=== PATIENT | male | born 1950 | race Caucasian/White ===

== ENCOUNTER 2020-03-13 17:16 | Emergency (ER) | payer MEDICARE ==
--- NOTE | 2020-03-13 19:19 | RAD REPORT ---
EXAM DESCRIPTION: US - Extremity Venous Uni Ltd - 03/13/2020 6:47 pm CLINICAL HISTORY: Pain;Swelling COMPARISON: None. TECHNIQUE: Real-time sonographic evaluation of the left lower extremity deep venous system was perfo rmed. FINDINGS: Normal compressibility, flow augmentation, phasic flow and spontaneous flow are identified in the left lower extremity common femoral, superficial femoral, popliteal and posterior tibial vein s. No intraluminal filling defects seen. IMPRESSION: No DVT in the left lower extremity.
--- NOTE | 2020-03-13 19:39 | ER ---
Nurse's Notes [facility] Name: Josiah Falk Age: 69 yrs Sex: Male : 1950 Arrival Date: 03/13/2020 Time: 17:17 Bed 4 Private MD: Dung Solomon E Diagnosis: Left Lower Extremity Pain Presentation: 03/13 17:21 Chief complaint: Patient states: I may have a blood clot in my L leg. Started having ca1 cramps an hour ago, my L calf is swelling and am sweaty. Cramps goes up to the upper L leg now. Denies chest pain. Denies Hx of blood cots. Coronavirus screen: Client denies travel out of the [place] in the last 14 days. At this time, the client does not indicate any symptoms associated with coronavirus-19. Ebola Screen: Patient negative for fever greater than or equal to 101.5 degrees Fahrenheit, and additional compatible Ebola Virus Disease symptoms Patient denies exposure to infectious person. Patient denies travel to an Ebola-affected area in the 21 days before illness onset. No symptoms or risks identified at this time. Initial Sepsis Screen: Does the patient meet any 2 criteria? No. Patient's initial sepsis screen is negative. Does the patient have a suspected source of infection? No. Patient's initial sepsis screen is negative. Risk Assessment: Do you want to hurt yourself or someone else? Patient reports no desire to harm self or others. Onset of symptoms was March 13, 2020. 17:21 Method Of Arrival: Ambulatory ca1 17:21 Acuity: FELIZ 3 ca1 Historical: - Allergies: 17:25 Tetracycline; ca1 - Home Meds: 17:25 Lisinopril Oral [Active]; ca1 - PMHx: 17:25 Hypertension; ca1 - PSHx: 17:25 None; ca1 - Immunization history:: Adult Immunizations up to date, Flu vaccine is not up to date. - Social history:: Smoking status: Patient denies any tobacco usage or history of. Screenin:30 Abuse screen: Denies threats or abuse. Nutritional screening: No deficits noted. ea Tuberculosis screening: No symptoms or risk factors identified. Fall Risk None identified. Assessment: 19:30 General: Appears in no apparent distress. Behavior is appropriate for age, Pt denies ea pain at this time. Pain: Denies pain. Complains of pain in left hamstring. Neuro: Level of Consciousness is awake, alert, obeys commands. Respiratory: Airway is patent Respiratory effort is even, unlabored, Respiratory pattern is regular, symmetrical. Derm: Skin is pink, warm \T\ dry. 19:46 Reassessment: Patient and/or family updated on plan of care and expected duration. Pain ea level reassessed. Patient is alert, oriented x 3, equal unlabored respirations, skin warm/dry/pink. Discharge instruction given to patient,v verbalized the understanding of instruction. Pt left ED ambulatory tolerating well. Vital Signs: 17:21 BP 169 / 98; Pulse 71; Resp 16 S; Temp 98.8(TE); Pulse Ox 97% on R/A; Weight 79.38 kg ca1 (R); Height 6 ft. 0 in. (182.88 cm) (R); Pain 9/10; 17:21 Body Mass Index 23.73 (79.38 kg, 182.88 cm) ca1 ED Course: 17:17 Patient arrived in ED. ag5 17:18 Dung Solomon MD is Private Physician. [facility] 17:24 Triage completed. ca1 17:25 Arm band placed on right wrist. ca1 18:47 Extremity Venous Uni Ltd US In Process Unspecified. EDMS 19:11 Len Lopez MD is Attending Physician. [facility] 19:30 Patient has correct armband on for positive identification. Bed in low position. Call ea light in reach. 19:43 No provider procedures requiring assistance completed. Patient did not have IV access ea during this emergency room visit. Administered Medications: No medications were administered Outcome: 19:38 Discharge ordered by . [facility] 19:43 Discharged to home ambulatory. ea 19:43 Condition: stable 19:43 Discharge instructions given to patient, Instructed on discharge instructions, follow up and referral plans. Demonstrated understanding of instructions, follow-up care. 19:48 Patient left the ED. ea Signatures: Dispatcher [employer] EDMS Keyonna Desouza RN RN ea Acob, Cheryl, RN RN ca1 RickWilliam 5 Len Lopez MD MD [facility]
--- NOTE | 2020-03-13 19:39 | EDPHYS ---
Physician Documentation [facility] Name: Josiah Falk Age: 69 yrs Sex: Male : 1950 Arrival Date: 03/13/2020 Time: 17:17 Bed 4 Private MD: Dung Solomon E ED Physician Len Lopez HPI: 03/13 19:25 This 69 yrs old Male presents to ER via Ambulatory with complaints of Leg mh7 Pain, Leg Swelling. 19:25 The patient presents with pain, that is acute, spasm. The complaints affect the left mh7 hamstring, posterior aspect of left knee and left calf. Context: The problem was sustained at home, resulted from an unknown cause, the patient can fully bear weight, the patient is able to ambulate, without difficulty, Problem is a result from a previous injury: No. Onset: The symptoms/episode began/occurred today. Modifying factors: The symptoms are alleviated by OTC meds, the symptoms are aggravated by nothing. Associated signs and symptoms:. 19:27 Associated signs and symptoms: Pertinent negatives fever, nausea, numbness, rash, mh7 swelling, tingling, vomiting, warmth, weakness. Treatment prior to arrival includes: over the counter medications, aspirin. Severity of symptoms: At their worst the symptoms were moderate, earlier today, in the emergency department the symptoms have resolved, and did so just prior to arrival. 19:29 Patient states that he started having pain and spasms in his left leg and thigh after mh7 sitting with his legs in a crossed position for a prolonged time. He states that he was worried about possibly having a blood clot so he came to the ED for evaluation. He denies any injuries, swelling, redness, fever, recent surgery, travel, chest pain, cough, abdominal pain, SOB, nausea, vomiting, numbness/tingling, or weakness.. Historical: - Allergies: 17:25 Tetracycline; ca1 - Home Meds: 17:25 Lisinopril Oral [Active]; ca1 - PMHx: 17:25 Hypertension; ca1 - PSHx: 17:25 None; ca1 - Immunization history:: Adult Immunizations up to date, Flu vaccine is not up to date. - Social history:: Smoking status: Patient denies any tobacco usage or history of. ROS: 19:27 Constitutional: Negative for fever, chills, and weight loss, Eyes: Negative for injury, mh7 pain, redness, and discharge, ENT: Negative for injury, pain, and discharge, Neck: Negative for injury, pain, and swelling, Cardiovascular: Negative for chest pain, palpitations, and edema, Respiratory: Negative for shortness of breath, cough, wheezing, and pleuritic chest pain, Abdomen/GI: Negative for abdominal pain, nausea, vomiting, diarrhea, and constipation, Back: Negative for injury and pain, : Negative for injury, bleeding, discharge, and swelling, Skin: Negative for injury, rash, and discoloration, Neuro: Negative for headache, weakness, numbness, tingling, and seizure, Psych: Negative for depression, anxiety, suicide ideation, homicidal ideation, and hallucinations, Allergy/Immunology: Negative for hives, rash, and allergies, Endocrine: Negative for neck swelling, polydipsia, polyuria, polyphagia, and marked weight changes, Hematologic/Lymphatic: Negative for swollen nodes, abnormal bleeding, and unusual bruising. Exam: 19:27 Constitutional: This is a well developed, well nourished patient who is awake, alert, mh7 and in no acute distress. Head/Face: Normocephalic, atraumatic. Eyes: Pupils equal round and reactive to light, extra-ocular motions intact. Lids and lashes normal. Conjunctiva and sclera are non-icteric and not injected. Cornea within normal limits. Periorbital areas with no swelling, redness, or edema. Neck: Trachea midline, no thyromegaly or masses palpated, and no cervical lymphadenopathy. Supple, full range of motion without nuchal rigidity, or vertebral point tenderness. No Meningismus. Chest/axilla: Normal chest wall appearance and motion. Nontender with no deformity. No lesions are appreciated. Cardiovascular: Regular rate and rhythm with a normal S1 and S2. No gallops, murmurs, or rubs. Normal PMI, no JVD. No pulse deficits. Respiratory: Lungs have equal breath sounds bilaterally, clear to auscultation and percussion. No rales, rhonchi or wheezes noted. No increased work of breathing, no retractions or nasal flaring. Abdomen/GI: Soft, non-tender, with normal bowel sounds. No distension or tympany. No guarding or rebound. No evidence of tenderness throughout. Back: No spinal tenderness. No costovertebral tenderness. Full range of motion. Skin: Warm, dry with normal turgor. Normal color with no rashes, no lesions, and no evidence of cellulitis. 19:29 Neuro: Awake and alert, GCS 15, oriented to person, place, time, and situation. mh7 Cranial nerves II-XII grossly intact. Motor strength 5/5 in all extremities. Sensory grossly intact. Cerebellar exam normal. Normal gait. Psych: Awake, alert, with orientation to person, place and time. Behavior, mood, and affect are within normal limits. 19:29 Musculoskeletal/extremity: Extremities: all appear grossly normal, with no appreciated pain with palpation, ROM: intact in all extremities, Circulation is intact in all extremities. Pulses: are normal with no appreciated deficits, Perfusion: the patient is normally perfused throughout, Perfusion: the extremity is normally perfused throughout, Calf tenderness, is absent, Edema, is not appreciated, Sensation intact. Compartment Syndrome exam of affected extremity: is normal. no numbness, no tingling, no sensation deficit, no palor, no weak pulses, Joints: All joints appear normal with full range of motion. Weight bearing: able to fully bear weight, without difficulty, Tendon exam: specific tendon testing normal through active and passive range of motion DVT Exam: no swelling, no tenderness, negative Homans' sign noted on exam, no appreciated bluish discoloration, no erythema, no increased warmth, Calves: are non-tender, have equal circumference. Vital Signs: 17:21 BP 169 / 98; Pulse 71; Resp 16 S; Temp 98.8(TE); Pulse Ox 97% on R/A; Weight 79.38 kg ca1 (R); Height 6 ft. 0 in. (182.88 cm) (R); Pain 9/10; 17:21 Body Mass Index 23.73 (79.38 kg, 182.88 cm) ca1 MDM: 19:29 Differential diagnosis: tendonitis, Musculoskeletal Pain, muscle spasms, DVT. Data [facility] reviewed: vital signs, nurses notes, radiologic studies, ultrasound. Data interpreted: Pulse oximetry: on room air is 97 %. Interpretation: normal. Counseling: I had a detailed discussion with the patient and/or guardian regarding: the historical points, exam findings, and any diagnostic results supporting the discharge/admit diagnosis, the presence of at least one elevated blood pressure reading (>120/80) during this emergency department visit, radiology results, the need for outpatient follow up, to return to the emergency department if symptoms worsen or persist or if there are any questions or concerns that arise at home. Response to treatment: the patient's symptoms have resolved after treatment, the patient's blood pressure is in an acceptable range, mental status has returned to baseline, the patient no longer shows bradycardia, the patient is not short of breath, the patient is not tachycardic, the patient's pain is gone, the patient's temperature has normalized, the patient is now symptom free, patient is well hydrated. 19:38 Patient medically screened. 7 19:39 Refusal of service: The patient/guardian displays adequate decision making capability mh7 and despite a detailed discussion of alternatives, benefits, risks, and consequences refuses: all lab tests. 03/13 17:30 Order name: Extremity Venous Uni Ltd ; Complete Time: 19:40 ca1 Administered Medications: No medications were administered Disposition: 03/13/20 19:38 Discharged to Home. Impression: Left Lower Extremity Pain. - Condition is Stable. - Discharge Instructions: Muscle Pain, Adult, Muscle Cramps and Spasms, [id number]. - Medication Reconciliation Form, Thank You Letter, Antibiotic Education, Prescription Opioid Use form. - Follow up: Private Physician; When: 1 - 2 days; Reason: Worsening of condition, Recheck today's complaints, Continuance of care, Re-evaluation by your physician. - Problem is new. - Symptoms have improved. Signatures: Dispatcher [employer] EDMS Jarrett Quigley, WINTER INTERN-C WINTER INTERN-Cla1 Keyonna Desouza RN RN ea Acob, Cheryl, RN RN ca1 Holmes, Maurice, MD MD 7 Corrections: (The following items were deleted from the chart) 19:48 19:38 03/13/2020 19:38 Discharged to Home. Impression: Left Lower Extremity Pain. ea Condition is Stable. Forms are Medication Reconciliation Form, Thank You Letter, Antibiotic Education, Prescription Opioid Use. Follow up: Private Physician; When: 1 - 2 days; Reason: Worsening of condition, Recheck today's complaints, Continuance of care, Re-evaluation by your physician. Problem is new. Symptoms have improved. 7
[2020-03-17 02:47] VITALS: BP 169/98; TEMP 98.8; O2SAT 97
== END 2020-03-13 19:48 | disposition home or self-care (01) ==
LOC: ER 17:16
DX: M79.662 Pain in left lower leg (principal); I10 Essential (primary) hypertension; Z88.1 Allergy status to other antibiotic agents
CPT/HCPCS: 93971; 99283

== ENCOUNTER 2021-08-21 11:29 | Emergency (ER) | payer OTHER ==
--- NOTE | 2021-08-21 13:42 | RAD REPORT ---
EXAM DESCRIPTION: CT - CTHCSPWOC - 08/21/2021 1:28 pm CLINICAL HISTORY: headache times 1-2 weeks, left-sided head and facial pain, sinus pressure, posteri or neck pain COMPARISON: No comparisons TECHNIQUE: Axial 5 mm thick images of the head were obtained. Axial 2 mm thick images of the cervic al spine were obtained with sagittal and coronal reconstruction images generated and reviewed. All CT scans are performed using dose optimization technique as appropriate and may include automated exposure control or mA/KV adjustment according to patient size. FINDINGS: No intracranial hemorrhage, mass, edema or acute intracranial finding. No suspicion for ac [place] infarction. No extra-axial fluid collections. Mastoid air cells are clear. Paranasal sinuses are clear except for a trace amount mucosal thickening along the floor of each maxillary sinus. There are no sclerotic sinus wall changes to suspect chronic sinusitis. No globe or orbit abnormality seen. Ve ntricles are normal. No significant atrophy or chronic ischemic changes seen. Cervical body height and alignment are normal. Disc space narrowing present at C5-6 with endplate spu rring and uncovertebral joint hypertrophy. Left-side bony foraminal encroachment is present. No fract ure or acute bony abnormality. Central canal detail is inherently limited. No paraspinal mass or hematoma. Thyroid gland is normal size. IMPRESSION: Negative CT head examination for acute or significant finding. Negative CT cervical spine examination for acute or significant finding.
--- NOTE | 2021-08-21 13:45 | RAD REPORT ---
EXAM DESCRIPTION: CT - Sinus Wo Cont - 08/21/2021 1:29 pm CLINICAL HISTORY: Headache, sinus pressure COMPARISON: None. TECHNIQUE: Axial 3 mm thick images of the paranasal sinuses were obtained. Coronal reformatted image s were reviewed. All CT scans are performed using dose optimization technique as appropriate and may include automated exposure control or mA/KV adjustment according to patient size. FINDINGS: Trace amount mucosal thickening seen along the floor of each maxillary sinus. Sinuses othe rwise clear. No sclerotic or expansile bony changes. Mild septal deviation changes are evident. No na sopharyngeal mucosal mass. No soft tissue masses are identified. Globes and orbital contents are normal. Mastoid air cells are c lear. IMPRESSION: Trace mucosal thickening along the floor of each maxillary sinus. Sinuses are otherwise clear.
[2021-08-21] MEDS ORDERED: ACETAMINOPHEN 500 MG TAB ONE (14:04)
--- NOTE | 2021-08-21 14:24 | EDPHYS ---
Physician Documentation [facility] Name: Josiah Falk Age: 70 yrs Sex: Male : 1950 Arrival Date: 08/21/2021 Time: 11:33 Bed 13 Private MD: ED Physician Rigoberto Kraft HPI: 08/21 12:40 This 70 yrs old Male presents to ER via Ambulatory with complaints of Abscess - tooth, cp Stiff Neck, Blurred Vision, Headache. 12:40 The patient complains of pain to the left side of head. The patient describes the cp headache as aching, waxing and waning. Onset: The symptoms/episode began/occurred week and half. 12:40 Associated signs and symptoms: Pertinent positives: neck stiffness, left side blurry cp vision, left side neck pain and stiffness, left side sinus pain, Pertinent negatives: altered mental status, dizziness, fever, weakness. Severity of symptoms: in the emergency department the pain is unchanged, despite home interventions. Patient reports concern for candidiasis infection as he was treated in the past with oral antifungal/yeast medications for esophageal and blood candidiasis infection. Historical: - Allergies: 11:58 Tetracycline; jd3 - Home Meds: 11:58 lisinopril Oral [Active]; jd3 - PMHx: 11:58 Hypertension; jd3 - PSHx: 11:58 None; jd3 - Immunization history:: Adult Immunizations up to date, Client reports having NOT received the Covid vaccine. Flu vaccine is not up to date. - Social history:: Smoking status: Patient denies any tobacco usage or history of. ROS: 12:45 Constitutional: Negative for body aches, chills, fever, poor PO intake. cp 12:45 Eyes: Positive for blurry vision, of the left eye, Negative for discharge, redness. cp 12:45 ENT: Positive for sinus pain, Negative for drainage from ear(s), ear pain, sore throat, difficulty swallowing, difficulty handling secretions. 12:45 Neck: Positive for pain with movement, pain at rest, stiffness, of the left posterior neck. 12:45 Cardiovascular: Negative for chest pain, edema, palpitations. 12:45 Respiratory: Negative for cough, shortness of breath, wheezing. 12:45 Skin: Negative for cellulitis, rash. 12:45 Neuro: Positive for headache, Negative for altered mental status, dizziness, weakness. 12:45 All other systems are negative. Exam: 12:50 Constitutional: The patient appears in no acute distress, alert, awake, cp non-diaphoretic, non-toxic, well developed, well nourished. 12:50 Head/face: Sinus tenderness, that is mild, is located over the left ethmoid sinus and cp left maxillary sinus. 12:50 Eyes: Periorbital structures: appear normal, Pupils: equal, round, and reactive to light and accomodation, Extraocular movements: intact throughout, Conjunctiva: normal, no exudate, no injection, Lids and lashes: appear normal, bilaterally. 12:50 ENT: External ear(s): are unremarkable, Ear canal(s): are normal, clear, TM's: dullness, bilaterally, Nose: is normal, Mouth: Lips: moist, Oral mucosa: pink and intact, moist, Posterior pharynx: Airway: no evidence of obstruction, patent, Dental exam: dental caries, diffusely, pain, is not appreciated, Voice: is normal. 12:50 Neck: ROM/movement: pain, that is mild, left side posterior neck. limited range of motion, is not appreciated, mild tenderness to palpation. 12:50 Chest/axilla: Inspection: normal. 12:50 Cardiovascular: Rate: normal, Rhythm: regular, Pulses: Pulses are 2+ in right radial artery and left radial artery. JVD: is not appreciated. 12:50 Respiratory: the patient does not display signs of respiratory distress, Respirations: normal, no use of accessory muscles, labored breathing, is not present, Breath sounds: are clear throughout, no decreased breath sounds, no stridor, no wheezing. 12:50 Abdomen/GI: Exam negative for discomfort, distension, guarding, Inspection: abdomen appears normal. 12:50 Back: pain, is absent, ROM is normal. 12:50 Skin: cellulitis, is not appreciated, no rash present. 12:50 Neuro: Orientation: to person, place \T\ time. Mentation: is normal, Motor: moves all fours, strength is normal, Sensation: is normal. Vital Signs: 11:59 BP 151 / 85; Pulse 61; Resp 16 S; Temp 97.5(TE); Pulse Ox 100% on R/A; Weight 91.63 kg jd3 (R); Height 6 ft. 0 in. (182.88 cm) (R); Pain 5/10; 11:59 Body Mass Index 27.40 (91.63 kg, 182.88 cm) jd3 MDM: 12:27 Patient medically screened. cp 13:00 Differential diagnosis: cluster headache, cerebral vascular accident, hypertensive cp headache, intracerebral hemorrhage, meningitis, migraine, sinusitis, tension headache. 14:22 Data reviewed: vital signs, nurses notes, radiologic studies, CT scan. cp 14:22 Counseling: I had a detailed discussion with the patient and/or guardian regarding: the cp historical points, exam findings, and any diagnostic results supporting the discharge/admit diagnosis, radiology results, the need for outpatient follow up, an ENT specialist, to return to the emergency department if symptoms worsen or persist or if there are any questions or concerns that arise at home. 08/21 12:29 Order name: CT Head C Spine; Complete Time: 13:47 cp 08/21 12:31 Order name: CT Sinus Wo Cont; Complete Time: 13:47 cp 08/21 13:48 Interpretation: Report reviewed. cp Administered Medications: 14:01 Drug: Tylenol 1000 mg Route: PO; jh6 Disposition: 18:22 Co-signature as Attending Physician, Rigoberto Kraft DO I was immediately available on-site ms3 in the Emergency Department for consultation in the care of the patient.. Disposition Summary: 08/21/21 14:23 Discharge Ordered Location: Home cp Problem: new cp Symptoms: have improved cp Condition: Stable cp Diagnosis - Headache cp Followup: cp - With: Delphine Richards MD - When: 2 - 3 days - Reason: Recheck today's complaints Discharge Instructions: - Discharge Summary Sheet cp - Tension Headache, Adult cp Forms: - Medication Reconciliation Form cp - Thank You Letter cp - Antibiotic Education cp - Prescription Opioid Use cp Prescriptions: - Ibuprofen 800 mg Oral Tablet - take 1 tablet by ORAL route every 8 hours As needed take with food; 30 tablet; cp Refills: 0, Product Selection Permitted - Cyclobenzaprine 10 mg Oral Tablet - take 1 tablet by ORAL route every 8 hours As needed; 20 tablet; Refills: 0, cp Product Selection Permitted Signatures: [facility] [place] PA PA cp Davies, Jonathon, RN RN jd3 Rigoberto Kraft DO DO ms3 Alejandrina Glaser, RN RN jh6
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
[2021-08-21 15:42] VITALS: BP 151/85; TEMP 97.5; O2SAT 100
== END 2021-08-21 15:15 | disposition home or self-care (01) ==
LOC: ER 11:29
DX: R51.9 Headache, unspecified (principal); M54.2 Cervicalgia; I10 Essential (primary) hypertension; Z88.1 Allergy status to other antibiotic agents
CPT/HCPCS: 70450; 70486; 72125; 99283

== ENCOUNTER 2021-10-23 23:20 | Emergency (ER) | payer OTHER ==
[2021-10-24 01:24] LABS: Absolute Lymphocytes (CBC) 2.1 K/uL (0.7-4.9); Hematocrit 44.3 % (39.6-49.0); Lymphocytes % 26.9 % (15.3-44.8); MPV 8.4 fL (7.6-11.3)
[2021-10-24 01:35] LABS: Albumin 3.6 g/dL (3.4-5.0); Bilirubin Total 0.3 mg/dL (0.2-1.0); Potassium 3.5 mmol/L (3.5-5.1); Protein, Total 7.2 g/dL (6.4-8.2)
[2021-10-24 01:43] LABS: Urine Blood Negative (Negative); Urine Glucose Negative (Negative); Urine Protein 1+ (Negative); Urine Specific Gravity >=1.030 (1.005-1.030); Urine pH 5.5 (5.0-7.0)
--- NOTE | 2021-10-24 04:37 | ER ---
Nurse's Notes [facility] Name: Josiah Falk Age: 71 yrs Sex: Male : 1950 Arrival Date: 10/23/2021 Time: 23:38 Bed 4 Private MD: Diagnosis: Left Flank Pain;Hydronephrosis with renal and ureteral calculous obstruction-5 mm Presentation: 10/23 23:50 Chief complaint: Patient states: pain in left hip. Coronavirus screen: Vaccine status: [facility] Patient reports receiving the 2nd dose of the covid vaccine. Ebola Screen: Patient negative for fever greater than or equal to 101.5 degrees Fahrenheit, and additional compatible Ebola Virus Disease symptoms. Initial Sepsis Screen: Does the patient meet any 2 criteria? No. Patient's initial sepsis screen is negative. Does the patient have a suspected source of infection? No. Patient's initial sepsis screen is negative. Risk Assessment: Do you want to hurt yourself or someone else? Patient reports no desire to harm self or others. Onset of symptoms was October 23, 2021. 23:50 Method Of Arrival: Ambulatory [facility] 23:50 Acuity: FELIZ 4 [facility] Triage Assessment: 23:52 General: Appears in no apparent distress. uncomfortable, Behavior is calm, cooperative, [facility] appropriate for age. Pain: Denies pain. Historical: - Allergies: 23:52 Tetracycline; [facility] - Home Meds: 23:52 lisinopril Oral [Active]; [facility] - PMHx: 23:52 Hypertension; [facility] - Immunization history:: Adult Immunizations up to date. - Social history:: Smoking status: Patient denies any tobacco usage or history of. Screenin/26 01:11 Abuse screen: Denies threats or abuse. Denies injuries from another. Nutritional kd3 screening: No deficits noted. Tuberculosis screening: No symptoms or risk factors identified. Fall Risk IV access (20 points). Assessment: 01:12 General: Appears in no apparent distress. Behavior is calm, cooperative. Neuro: Level kd3 of Consciousness is awake, alert, obeys commands, Oriented to person, place, time, situation. Respiratory: Airway is patent Trachea midline Respiratory effort is even, unlabored, Respiratory pattern is regular, symmetrical. Vital Signs: 10/23 23:50 BP 180 / 92; Pulse 72; Resp 18; Temp 97.9; Pulse Ox 97% on R/A; Weight 90.72 kg; Height [facility] 6 ft. 0 in. (182.88 cm); Pain 8/10; 10/24 01:11 BP 156 / 82; Pulse 71; Resp 18; Pulse Ox 98% ; kd3 03:20 BP 143 / 74; Pulse 59; Resp 16 S; Pulse Ox 98% on R/A; as6 10/23 23:50 Body Mass Index 27.12 (90.72 kg, 182.88 cm) 1 ED Course: 10/23 23:38 Patient arrived in ED. ja2 23:52 Triage completed. 1 23:52 Arm band placed on right wrist. 1 23:59 Edward Woods MD is Attending Physician. kdr 10/24 00:28 Danielle Bryson, JUSTIN is Primary Nurse. kd3 00:28 Primary Nurse role handed off by Danielle Bryson, JUSTIN as6 00:28 Hever Keller, JUSTIN is Primary Nurse. as6 01:08 CBC with Diff Sent. kd3 01:08 CMP Sent. kd3 01:08 Lipase Sent. kd3 01:11 Patient has correct armband on for positive identification. kd3 02:01 Abdomen In Process Unspecified. EDMS 04:55 No provider procedures requiring assistance completed. IV discontinued, intact, aa9 bleeding controlled, No redness/swelling at site. Pressure dressing applied. Administered Medications: No medications were administered Medication: 01:11 VIS not applicable for this client. kd3 Outcome: 04:36 Discharge ordered by . kdr 04:55 Discharged to home ambulatory. aa9 04:55 Condition: stable 04:55 Discharge instructions given to patient, Instructed on discharge instructions, follow up and referral plans. medication usage, Demonstrated understanding of instructions, follow-up care, medications, Prescriptions given X 4. 04:55 Patient left the ED. aa9 Signatures: Dispatcher [employer] EDMS Edward Woods MD MD [facility] Yuliet [facility] Hever Keller, JUSTIN ANDERSON as6 Danielle Bryson, JUSTIN ANDERSON kd3 Hananh Snell RN RN aa9 Josee Walton RN RN [facility]
--- NOTE | 2021-10-24 04:37 | EDPHYS ---
Physician Documentation [facility] Name: Josiah Falk Age: 71 yrs Sex: Male : 1950 Arrival Date: 10/23/2021 Time: 23:38 Bed 4 Private MD: ED Physician Edward Woods HPI: 10/24 04:13 This 71 yrs old Male presents to ER via Ambulatory with complaints of SIDE kdr PAIN/SWELLING. 04:13 Patient's presents to the ED complaining of left flank pain. He states that this has kdr been going on for 30 to 40 years. He states that he initially may have had some kind of rectal cyst. He feels that periodically it enlarges and then ruptures and gives him during this period. He was supposed to follow-up with GI but did not make that appointment. He days he has had increased discomfort on his left flank and feels that his flank is noticeably swollen. He denies any other associated symptoms including fever. Patient is nontoxic and nonacute appearing in the ED on initial presentation. Onset: The symptoms/episode began/occurred gradually, 3 day(s) ago. Severity of symptoms: At their worst the symptoms were mild moderate just prior to arrival, in the emergency department the symptoms have improved mildly. The patient has experienced similar episodes in the past, multiple times, chronically, today's symptoms are similar. The patient has not recently seen a physician. Historical: - Allergies: 10/23 23:52 Tetracycline; bh1 - Home Meds: 23:52 lisinopril Oral [Active]; bh1 - PMHx: 23:52 Hypertension; bh1 - Immunization history:: Adult Immunizations up to date. - Social history:: Smoking status: Patient denies any tobacco usage or history of. ROS: 10/24 04:13 Constitutional: Negative for fever, chills, and weight loss, Eyes: Negative for injury, kdr pain, redness, and discharge, ENT: Negative for injury, pain, and discharge, Neck: Negative for injury, pain, and swelling, Cardiovascular: Negative for chest pain, palpitations, and edema, Respiratory: Negative for shortness of breath, cough, wheezing, and pleuritic chest pain, : Negative for injury, bleeding, discharge, and swelling, MS/Extremity: Negative for injury and deformity, Skin: Negative for injury, rash, and discoloration, Neuro: Negative for headache, weakness, numbness, tingling, and seizure activity. Psych: Negative for depression, anxiety, suicide ideation, homicidal ideation, and hallucinations, Allergy/Immunology: Negative for hives, rash, and allergies, Endocrine: Negative for neck swelling, polydipsia, polyuria, polyphagia, and marked weight changes, Hematologic/Lymphatic: Negative for swollen nodes, abnormal bleeding, and unusual bruising. Abdomen/GI: Positive for abdominal pain, nausea, Negative for abdominal distension, anorexia, dysphagia, hematemesis, black/tarry stool, rectal pain, rectal bleeding, bowel incontinence, flatulence. Exam: 04:13 Constitutional: This is a well developed, well nourished patient who is awake, alert, kdr and in no acute distress. Head/Face: Normocephalic, atraumatic. Eyes: Pupils equal round and reactive to light, extra-ocular motions intact. Lids and lashes normal. Conjunctiva and sclera are non-icteric and not injected. Cornea within normal limits. Periorbital areas with no swelling, redness, or edema. Neck: Trachea midline, no thyromegaly or masses palpated, and no cervical lymphadenopathy. Supple, full range of motion without nuchal rigidity, or vertebral point tenderness. No Meningismus. Chest/axilla: Normal chest wall appearance and motion. Nontender with no deformity. No lesions are appreciated. Cardiovascular: Regular rate and rhythm with a normal S1 and S2. No gallops, murmurs, or rubs. Normal PMI, no JVD. No pulse deficits. Respiratory: Lungs have equal breath sounds bilaterally, clear to auscultation and percussion. No rales, rhonchi or wheezes noted. No increased work of breathing, no retractions or nasal flaring. Abdomen/GI: Soft, non-tender, with normal bowel sounds. No distension or tympany. No guarding or rebound. No evidence of tenderness throughout. Back: No spinal tenderness. No costovertebral tenderness. Full range of motion. Skin: Warm, dry with normal turgor. Normal color with no rashes, no lesions, and no evidence of cellulitis. MS/ Extremity: Pulses equal, no cyanosis. Neurovascular intact. Full, normal range of motion. Neuro: Awake and alert, GCS 15, oriented to person, place, time, and situation. Cranial nerves II-XII grossly intact. Motor strength 5/5 in all extremities. Sensory grossly intact. Cerebellar exam normal. Normal gait. Psych: Awake, alert, with orientation to person, place and time. Behavior, mood, and affect are within normal limits. 04:13 Abdomen/GI: Inspection: abdomen appears normal, Bowel sounds: normal, Palpation: soft, mild abdominal tenderness, in the anterior aspect of left lateral abdomen, posterior aspect of left lateral abdomen and left lower quadrant. Vital Signs: 10/23 23:50 BP 180 / 92; Pulse 72; Resp 18; Temp 97.9; Pulse Ox 97% on R/A; Weight 90.72 kg; Height bh1 6 ft. 0 in. (182.88 cm); Pain 8/10; 10/24 01:11 BP 156 / 82; Pulse 71; Resp 18; Pulse Ox 98% ; kd3 03:20 BP 143 / 74; Pulse 59; Resp 16 S; Pulse Ox 98% on R/A; as6 10/23 23:50 Body Mass Index 27.12 (90.72 kg, 182.88 cm) [facility] MDM: 04:13 Data reviewed: vital signs, nurses notes, lab test result(s), radiologic studies. kdr Counseling: I had a detailed discussion with the patient and/or guardian regarding: the historical points, exam findings, and any diagnostic results supporting the discharge/admit diagnosis, lab results, radiology results. 04:36 Patient medically screened. kdr 10/24 00:50 Order name: CBC with Diff; Complete Time: 02:19 kdr 10/24 00:50 Order name: CMP; Complete Time: 02:19 kdr 10/24 00:50 Order name: Lipase; Complete Time: 02:19 kdr 10/24 00:50 Order name: CT Abd/Pelvis - IV Contrast Only kdr 10/24 00:54 Order name: Abdomen EDAZ 10/24 01:43 Order name: Urine Dipstick-Ancillary; Complete Time: 02:19 EDAZ 10/24 00:50 Order name: IV Saline Lock; Complete Time: 01:08 kdr 10/24 00:50 Order name: Labs collected and sent; Complete Time: 01:08 kdr 10/24 00:50 Order name: Urine Dipstick-Ancillary (obtain specimen); Complete Time: 01:42 kdr Administered Medications: No medications were administered Disposition Summary: 10/24/21 04:36 Discharge Ordered Location: Home kdr Problem: an acute exacerbation kdr Symptoms: have improved kdr Condition: Stable kdr Diagnosis - Left Flank Pain kdr - Hydronephrosis with renal and ureteral calculous obstruction - 5 mm kdr Followup: kdr - With: Private Physician - When: 2 - 3 days - Reason: If symptoms return, Further diagnostic work-up, Recheck today's complaints, Continuance of care, Re-evaluation by your physician Discharge Instructions: - Discharge Summary Sheet kdr - Kidney Stones, [id number] kdr - Hydronephrosis kdr Forms: - Medication Reconciliation Form kdr - Thank You Letter kdr - Antibiotic Education kdr - Prescription Opioid Use kdr Prescriptions: - Zofran 4 mg Oral Tablet - take 1 tablet by ORAL route every 12 hours As needed; 20 tablet; Refills: 0, kdr Product Selection Permitted - Tramadol 50 mg Oral Tablet - take 1 tablet by ORAL route every 8 hours as needed; 12 tablet; Refills: 0, kdr Product Selection Permitted - Flomax 0.4 mg Oral capsule - take 1 capsule by ORAL route once daily 1/2 hour following the same meal each kdr day; 10 capsule; Refills: 0, Product Selection Permitted - Bactrim DS 800-160 mg Oral Tablet - take 1 tablet by ORAL route every 12 hours for 5 days; 10 tablet; Refills: 0, kdr Product Selection Permitted Signatures: Dispatcher [employer] Edward Ballard MD MD kdr Brown, Sophia, PA PA sb3 Josee Walton RN RN bh1
[2021-10-24 05:00] VITALS: TEMP 97.9
[2021-10-24 05:04] VITALS: O2SAT 98
[2021-10-24 05:10] VITALS: BP 143/74
--- NOTE | 2021-10-24 09:59 | RAD REPORT ---
EXAM DESCRIPTION: CT Abdomen and Pelvis With Intravenous Contrast CLINICAL HISTORY: The patient is 71 years old and is Male; LLQ abdominal pain TECHNIQUE: Axial computed tomography images of the abdomen and pelvis with intravenous contrast. S agittal and coronal reformatted images were created and reviewed. This CT exam was performed using one or more of the following dose reduction techniques: automated exposure control, adjustment of t he mA and/or kV according to patient size, and/or use of iterative reconstruction technique. COMPARISON: No relevant prior studies available. FINDINGS: LUNG BASES: Minimal dependent densities in the lung bases are present. ABDOMEN: LIVER: Unremarkable. No mass. GALLBLADDER AND BILE DUCTS: The gallbladder is contracted. PANCREAS: Mild fatty infiltration of pancreas is noted. SPLEEN: Unremarkable. ADRENALS: Unremarkable. No mass. KIDNEYS AND URETERS: Bilateral renal cysts are present. Mild left perinephric and periureteral st randing is present. Mild left hydroureter is present secondary to a 5 mm distal left ureteral calcu jw. STOMACH AND BOWEL: The stomach is minimally distended with food contents and air. The small bowel is normal in caliber. Stool is present throughout colon. There is no mucosal thickening or evidence of obstruction. PELVIS: APPENDIX: The appendix is normal in caliber without surrounding inflammation. BLADDER: The bladder is moderately distended. REPRODUCTIVE: Unremarkable as visualized. ABDOMEN and PELVIS: INTRAPERITONEAL SPACE: Unremarkable. No free air. No significant fluid collection. BONES/JOINTS: Multilevel degenerative change of the spine is present. SOFT TISSUES: The soft tissues are normal. VASCULATURE: Unremarkable. No abdominal aortic aneurysm. LYMPH NODES: Unremarkable. No enlarged lymph nodes. IMPRESSION: Mild left hydroureter is present secondary to a 5 mm distal left ureteral calculus. As sociated mild left perinephric and periureteral stranding is noted. Electronically signed by: Albertina Peck MD 10/24/2021 4:23 AM CDT Due to temporary technical issues with the PACS/Fluency reporting system, reports are being signed by the in house radiologists without review as a courtesy to insure prompt reporting. The interpreting radiologist is fully responsible for the content of the report.
== END 2021-10-24 04:55 | disposition home or self-care (01) ==
LOC: ER 23:20
DX: N13.2 Hydronephrosis with renal and ureteral calculous obstruction (principal); I10 Essential (primary) hypertension; Z88.1 Allergy status to other antibiotic agents
CPT/HCPCS: 85025; 36415; 81003; 83690; 80053; 74177; Q9967; 99283

== ENCOUNTER 2022-05-08 13:01 | Emergency (ER) | payer OTHER, MEDICARE ==
--- NOTE | 2022-05-08 14:17 | RAD REPORT ---
EXAM DESCRIPTION: RAD - C Spine Ap/Lat - 05/08/2022 2:08 pm CLINICAL HISTORY: PAIN COMPARISON: Lumbar Spine 3 Views dated 05/08/2022 FINDINGS: Cervical bodies are normal in height and alignment.No fracture or acute bony process seen. Posterior osteophyte seen lower cervical levels. No prevertebral soft tissue thickening or other suspicious soft tissue finding. IMPRESSION: Mild lower cervical degenerative changes.
--- NOTE | 2022-05-08 14:19 | RAD REPORT ---
EXAM DESCRIPTION: RAD - Lumbar Spine 3 Views - 05/08/2022 2:07 pm CLINICAL HISTORY: PAIN Radiculopathy COMPARISON: No comparisons FINDINGS: Vertebral body heights appear maintained. No compression fracture noted. Multilevel disc t hinning is seen with small anterior/ posterior osteophytes. No spondylolysis or spondylolisthesis. Mild dextroscoliosis is seen. IMPRESSION: No acute process seen. Mild lumbar degenerative changes.
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
[2022-05-08 15:14] VITALS: TEMP 98.1; O2SAT 99
[2022-05-08 15:15] VITALS: BP 139/79
== END 2022-05-08 15:11 | disposition home or self-care (01) ==
LOC: ER 13:01
DX: M54.2 Cervicalgia (principal); M54.9 Dorsalgia, unspecified; V49.49XA Driver injured in collision with other motor vehicles in traffic accident, initial encounter; I10 Essential (primary) hypertension; Z88.1 Allergy status to other antibiotic agents
CPT/HCPCS: 72040; 72100

== ENCOUNTER → 2023-03-21 | Emergency (ER) | payer OTHER, MEDICARE ==
[~2023-03-21] MED LIST: TDAP (DIPHTH,PERTUSS(ACELL),TET VAC) 0.5 ML VIAL IMVAC ONE
--- NOTE | 2023-03-21 14:50 | ER ---
Nurse's Notes [facility] Name: Josiah Falk Age: 72 yrs Sex: Male : 1950 Arrival Date: 03/21/2023 Time: 14:08 Bed IW6 Private MD: Diagnosis: Laceration to right hand Presentation: 03/21 14:41 Coronavirus screen: Client denies travel out of the [place] in the last 14 days. At this ll1 time, the client does not indicate any symptoms associated with coronavirus-19. Ebola Screen: Patient denies travel to an Ebola-affected area in the 21 days before illness onset. Complicating Factors: There are no complicating factors for this patient. Initial Sepsis Screen: Does the patient meet any 2 criteria? No. Patient's initial sepsis screen is negative. Does the patient have a suspected source of infection? Yes: Skin breakdown/wound. Risk Assessment: Do you want to hurt yourself or someone else? Patient reports no desire to harm self or others. 14:41 Method Of Arrival: Ambulatory ll1 14:41 Acuity: FELIZ 4 ll1 14:41 Chief complaint: Patient states: Accidentally cut R hand Saturday on small piece of ll1 metal. Wound is slightly red, scabbing noted. Slight pain, no fever. Onset of symptoms was March 17, 2023. Triage Assessment: 14:44 General: Appears in no apparent distress. Behavior is calm, cooperative, appropriate ll1 for age. Pain: Complains of pain in right hand Quality of pain is described as aching. Derm: skin tear R hand. Injury Description: Laceration. Historical: - Allergies: 14:40 Tetracycline; ll1 - PMHx: 14:40 Hypertension; ll1 - Immunization history:: Adult Immunizations up to date. - Social history:: Smoking status: Patient denies any tobacco usage or history of. - Family history:: not pertinent. Screenin:30 [facility] ED Fall Risk Assessment (Adult) History of falling in the last 3 months, ap3 including since admission No falls in past 3 months (0 pts). Abuse screen: Denies threats or abuse. Nutritional screening: No deficits noted. Tuberculosis screening: No symptoms or risk factors identified. Assessment: 15:31 Injury Description: Laceration is. ap3 15:31 Musculoskeletal: No deficits noted. ap3 Vital Signs: 14:41 BP 152 / 99; Pulse 66; Resp 17; Temp 98.2; Pulse Ox 100% ; ll1 14:41 Weight 78.02 kg; Height 6 ft. 0 in. ; Pain 0/10; ll1 14:41 Body Mass Index 23.33 (78.02 kg, 182.88 cm) ll1 14:41 Pain Scale: Adult ll1 ED Course: 14:40 Patient arrived in ED. ll1 14:40 Brian Olguin MD is Attending Physician. rt 14:40 Arm band placed on. ll1 14:41 Triage completed. ll1 15:30 Patient has correct armband on for positive identification. Provided Education on: ap3 discharge instructions with provider. 15:30 No provider procedures requiring assistance completed. Patient did not have IV access ap3 during this emergency room visit. Administered Medications: 14:57 Not Given (Patient Refused): boostrix tdap0.5 ml IM once; as a single dose iw Medication: 15:31 VIS not applicable for this client. ap3 Outcome: 14:50 Discharge ordered by . rt 15:30 Discharged to home ap3 15:30 Condition: good 15:30 Discharge instructions given to patient, Instructed on discharge instructions, follow up and referral plans. Demonstrated understanding of instructions, follow-up care, 15:31 Patient left the ED. ap3 Signatures: Nancy Matta RN RN ap3 Mary Beth Sims RN RN ll1 Brian Olguin MD MD rt Eva Castro RN iw Corrections: (The following items were deleted from the chart) 14:45 14:41 EtCO2 172 mmHg; Height 6 ft. 0 in.; Pain 0/10, Adult; ll1 ll1
--- NOTE | 2023-03-21 14:50 | EDPHYS ---
Physician Documentation [facility] Name: Josiah Falk Age: 72 yrs Sex: Male : 1950 Arrival Date: 03/21/2023 Time: 14:08 Bed IW6 Private MD: ED Physician Brian Olguin HPI: 03/21 14:51 This 72 yrs old Male presents to ER via Ambulatory with complaints of Laceration To rt Hand. 14:51 Patient presents to the ED requesting tetanus immunization. About 4 days ago, he rt sustained a laceration to the right hand. Cleaned with peroxide, tried to close it with Steri-Strips. Denies other acute complaints at this time, symptoms are moderate severity, no other aggravating elevating factors.. Historical: - Allergies: 14:40 Tetracycline; ll1 - PMHx: 14:40 Hypertension; ll1 - Immunization history:: Adult Immunizations up to date. - Social history:: Smoking status: Patient denies any tobacco usage or history of. - Family history:: not pertinent. ROS: 14:51 Constitutional: Negative for fever, chills, and weight loss, MS/Extremity: Negative for rt injury and deformity, Neuro: Negative for headache, weakness, numbness, tingling, and seizure, Psych: Negative for depression, anxiety, suicide ideation, homicidal ideation, and hallucinations, 14:51 Skin: Positive for laceration(s), Negative for abrasions, Exam: 14:51 Constitutional: This is a well developed, well nourished patient who is awake, alert, rt and in no acute distress. Head/Face: Normocephalic, atraumatic. MS/ Extremity: Pulses equal, no cyanosis. Neurovascular intact. Full, normal range of motion. Neuro: Awake and alert, GCS 15, oriented to person, place, time, and situation. Cranial nerves II-XII grossly intact. Motor strength 5/5 in all extremities. Sensory grossly intact. Cerebellar exam normal. Normal gait. Psych: Awake, alert, with orientation to person, place and time. Behavior, mood, and affect are within normal limits. 14:51 Musculoskeletal/extremity: Laceration with scabbing to the right hand, no drainage, no surrounding erythema, no warmth, no signs of infection. Vital Signs: 14:41 BP 152 / 99; Pulse 66; Resp 17; Temp 98.2; Pulse Ox 100% ; ll1 14:41 Weight 78.02 kg; Height 6 ft. 0 in. ; Pain 0/10; ll1 14:41 Body Mass Index 23.33 (78.02 kg, 182.88 cm) ll1 14:41 Pain Scale: Adult ll1 MDM: 14:42 Patient medically screened. rt 14:51 Differential diagnosis: Laceration. Data reviewed: vital signs, nurses notes. ED rt course: No signs of infection, will allow to heal by secondary intention. Wound already appears to be well-healing. Offered patient Boostrix immunization, states that he does not wish to have the pertussis component of it. Patient to follow-up as an outpatient.. Administered Medications: 14:57 Not Given (Patient Refused): boostrix tdap0.5 ml IM once; as a single dose iw Disposition Summary: 03/21/23 14:50 Discharge Ordered Notes: Location: Home rt Problem: an ongoing problem rt Symptoms: are unchanged rt Condition: Stable rt Diagnosis - Laceration to right hand rt Followup: rt - With: Private Physician - When: 2 - 3 days - Reason: Discharge Instructions: - Discharge Summary Sheet rt - Nonsutured Laceration Care rt Forms: - Medication Reconciliation Form rt - Thank You Letter rt - Antibiotic Education rt - Prescription Opioid Use rt - Patient Portal Instructions rt - Leadership Thank You Letter rt Signatures: Mary Beth Sims, RN RN ll1 Brian Olguin MD MD rt Eva Castro RN iw
[2023-03-21 17:49] VITALS: BP 152/99; TEMP 98.2; O2SAT 100
== END ==
LOC: ER 14:08
DX: S61.411A Laceration without foreign body of right hand, initial encounter (principal); Z88.1 Allergy status to other antibiotic agents
CPT/HCPCS: 99282

== ENCOUNTER → 2023-04-18 | Emergency (ER) | payer OTHER, MEDICARE ==
--- NOTE | 2023-04-18 18:14 | EDPHYS ---
Physician Documentation [facility] Name: Josiah Falk Age: 72 yrs Sex: Male : 1950 Arrival Date: 04/18/2023 Time: 17:22 Bed IW3 Private MD: Jh Ramirez V ED Physician Austen Bartlett HPI: 04/18 18:10 This 72 yrs old Male presents to ER via Ambulatory with complaints of Rash. cp 18:10 The patient's rash thought to be caused by an unknown cause. The rash is located on the cp face, right hand and left hand. The rash can be described as excoriated, mild erythema. 18:10 Onset: The symptoms/episode began/occurred 2 week(s) ago. cp 18:10 Associated signs and symptoms: Pertinent positives: burning sensation, itching, cp Pertinent negatives: fever. Historical: - Allergies: 17:35 Tetracycline; la1 - PMHx: 17:35 Hypertension; la1 - Immunization history:: Adult Immunizations up to date. - Social history:: Smoking status: Patient denies any tobacco usage or history of. ROS: 18:12 Constitutional: Negative for body aches, chills, fever, poor PO intake, cp 18:12 ENT: Negative for drainage from ear(s), ear pain, sore throat, difficulty swallowing, cp difficulty handling secretions, 18:12 Respiratory: Negative for cough, shortness of breath, wheezing, 18:12 Abdomen/GI: Negative for abdominal pain, vomiting, diarrhea, constipation, 18:12 Skin: Positive for rash, of the face, right hand and left hand, 18:12 All other systems are negative, Exam: 18:12 Constitutional: The patient appears in no acute distress, alert, awake, comfortable, cp non-toxic, well developed, well nourished, 18:12 Head/face: Exam is negative for obvious evidence of injury or deformity, Noted is rash, that is erythematous, 18:12 Eyes: Periorbital structures: no swelling, no edema noted, Extraocular movements: intact throughout, Conjunctiva: normal, no exudate, no injection, Sclera: no appreciated abnormality, Lids and lashes: appear normal, bilaterally, 18:12 ENT: External ear(s): are unremarkable, Ear canal(s): are normal, clear, TM's: dullness, bilaterally, Mouth: Lips: moist, Oral mucosa: pink and intact, moist, Posterior pharynx: is normal, airway is patent, no erythema, no exudate, 18:12 Chest/axilla: Inspection: normal, 18:12 Cardiovascular: Rate: normal, 18:12 Respiratory: the patient does not display signs of respiratory distress, Respirations: normal, no use of accessory muscles, no retractions, labored breathing, is not present, Breath sounds: are clear throughout, no decreased breath sounds, no stridor, no wheezing, 18:12 Skin: rash a moderate rash is noted, rash can be described as excoriated, consistent with contact dermatitis, Vital Signs: 17:40 BP 167 / 85; Pulse 70; Resp 16; Temp 98.8; Pulse Ox 100% ; Pain 4/10; ll1 17:40 Pain Scale: Adult ll1 MDM: 18:13 Patient medically screened. cp 18:13 Data reviewed: vital signs, nurses notes, and as a result, I will discharge patient. cp 18:13 Differential diagnosis: dermatitis, eczema, cellulitis. Care significantly affected by cp the following chronic conditions: Hypertension. Counseling: I had a detailed discussion with the patient and/or guardian regarding the historical points, exam findings, and any diagnostic results supporting the discharge/admit diagnosis, the need for outpatient follow up, a family practitioner, to return to the emergency department if symptoms worsen or persist or if there are any questions or concerns that arise at home. Administered Medications: No medications were administered Disposition Summary: 04/18/23 18:13 Discharge Ordered Problem: new cp Symptoms: are unchanged cp Condition: Stable cp Diagnosis - Dermatitis, unspecified cp Followup: cp - With: Private Physician - When: 1 week - Reason: symptoms continue Discharge Instructions: - Discharge Summary Sheet cp - Contact Dermatitis cp Forms: - Medication Reconciliation Form cp - Thank You Letter cp - Antibiotic Education cp - Prescription Opioid Use cp - Patient Portal Instructions cp - Leadership Thank You Letter cp Prescriptions: - Triamcinolone Acetonide 0.5 % Topical cream - apply 1 application TOPICAL route 2 times per day for 8-10 days apply to area cp of rash except face; 30 gram; Refills: 0, Product Selection Permitted Signatures: Jarrett Quigley, HAIM-C METAL TANK ERECTOR-Cla1 Austen Benito PA PA cp Lewis, Lynsay, RN RN ll1 Corrections: (The following items were deleted from the chart) 04/19 15:36 04/18 19:12 Constitutional: The patient appears in no acute distress, alert, awake, cp comfortable, non-toxic, well developed, well nourished, cp 04/19 16:36 04/18 19:12 Head/face: Exam is negative for obvious evidence of injury or deformity, cp Noted is rash, that is erythematous, cp 04/19 15:36 04/18 19:12 Eyes: Periorbital structures: no swelling, no edema noted, Extraocular cp movements: intact throughout, Conjunctiva: normal, no exudate, no injection, Sclera: no appreciated abnormality, Lids and lashes: appear normal, bilaterally, cp 04/19 16:36 04/18 19:12 ENT: External ear(s): are unremarkable, Ear canal(s): are normal, clear, cp TM's: dullness, bilaterally, Mouth: Lips: moist, Oral mucosa: pink and intact, moist, Posterior pharynx: is normal, airway is patent, no erythema, no exudate, cp 04/19 16:36 04/18 19:12 Chest/axilla: Inspection: normal, cp cp 04/19 16:36 04/18 19:12 Cardiovascular: Rate: normal, cp cp 04/19 16:36 04/18 19:12 Respiratory: the patient does not display signs of respiratory distress, cp Respirations: normal, no use of accessory muscles, no retractions, labored breathing, is not present, Breath sounds: are clear throughout, no decreased breath sounds, no stridor, no wheezing, cp 04/19 16:36 04/18 19:12 Skin: rash a moderate rash is noted, rash can be described as excoriated, cp consistent with contact dermatitis, cp
--- NOTE | 2023-04-18 18:14 | ER ---
Nurse's Notes [facility] Name: Josiah Falk Age: 72 yrs Sex: Male : 1950 Arrival Date: 04/18/2023 Time: 17:22 Bed IW3 Private MD: Jh Ramirez V Diagnosis: Dermatitis, unspecified Presentation: 04/18 17:40 Chief complaint: Patient states: Rash to facial area for 2 weeks with itching. Getting ll1 worse on face on both hands. Coronavirus screen: Client denies travel out of the [place] in the last 14 days. At this time, the client does not indicate any symptoms associated with coronavirus-19. Ebola Screen: Patient denies travel to an Ebola-affected area in the 21 days before illness onset. Initial Sepsis Screen: Does the patient meet any 2 criteria? No. Patient's initial sepsis screen is negative. Does the patient have a suspected source of infection? Yes: Skin breakdown/wound. Risk Assessment: Do you want to hurt yourself or someone else? Patient reports no desire to harm self or others. Onset of symptoms was April 03, 2023. 17:40 Method Of Arrival: Ambulatory ll1 17:40 Acuity: FELIZ 4 ll1 Triage Assessment: 17:40 General: Appears in no apparent distress. Behavior is calm, cooperative, appropriate iw for age. Pain:. Pain: Complains of pain in face Pain currently is 3 out of 10 on a pain scale. Quality of pain is described as burning, aching. Derm: Reports rash with itching to face and hands. Historical: - Allergies: 17:35 Tetracycline; la1 - PMHx: 17:35 Hypertension; la1 - Immunization history:: Adult Immunizations up to date. - Social history:: Smoking status: Patient denies any tobacco usage or history of. Screenin:27 [facility] ED Fall Risk Assessment (Adult) Score/Fall Risk Level 0 - 2 = Low Risk pf1 Oriented to surroundings, Maintained a safe environment, Educated pt \T\ family on fall prevention, incl call for assistance when getting out of bed, Hourly rounding (assess needs \T\ fall precautionary measures) done. Abuse screen: Denies threats or abuse. Nutritional screening: No deficits noted. Tuberculosis screening: No symptoms or risk factors identified. Assessment: 18:20 Reassessment: No changes from previously documented assessment. Patient and/or family iw updated on plan of care and expected duration. Pain level reassessed. Patient is alert, oriented x 3, equal unlabored respirations, skin warm/dry/pink. Vital Signs: 17:40 BP 167 / 85; Pulse 70; Resp 16; Temp 98.8; Pulse Ox 100% ; Pain 4/10; ll1 17:40 Pain Scale: Adult ll1 ED Course: 17:29 Patient arrived in ED. mr 17:29 Jh Ramirez MD is Private Physician. mr 17:43 Triage completed. ll1 17:43 Arm band placed on. ll1 18:02 Austen Benito PA is PHCP. cp 18:02 Austen Bartlett MD is Attending Physician. cp 18:27 No provider procedures requiring assistance completed. Patient did not have IV access pf1 during this emergency room visit. Administered Medications: No medications were administered Outcome: 18:13 Discharge ordered by MD. cp 18:27 Patient left the ED. ll1 18:27 Discharged to home ambulatory, iw 18:27 Condition: stable 18:27 Discharge instructions given to patient, Instructed on discharge instructions, follow up and referral plans. medication usage, Demonstrated understanding of instructions, follow-up care, medications, Prescriptions given X 1, Signatures: Yuliet Pastor, Reg Reg Eva Castro, RN RN iw Jarrett Quigley, SET MAKING MACHINE OPERATOR-C SET MAKING MACHINE OPERATOR-Cla1 Austen Benito PA PA cp Lewis, Lynsay, RN RN ll1 Sherin Jackson RN RN pf1
[2023-04-18 19:48] VITALS: BP 167/85; TEMP 98.8; O2SAT 100
== END ==
LOC: ER 17:22
DX: L30.9 Dermatitis, unspecified (principal); I10 Essential (primary) hypertension; Z88.3 Allergy status to other anti-infective agents
CPT/HCPCS: 99283